=== PATIENT | female | born 1960 | race Hispanic/Latino ===

== ENCOUNTER → 2018-03-12 | Outpatient (CLI) | payer BC, OTHER ==
[~2018-03-12] MED LIST: LIDOCAINE 1%-EPI 1:100,000 20 ML VIAL IJ ONE; LIDOCAINE HCL MPF 1% 5ML VIAL ONE; SODIUM BICARB 50MEQ 50ML VIAL ONE
== END | disposition home or self-care (01) ==
LOC: RAH 07:48
PROVIDERS: ATTEND Family Medicine
DX: E04.1 Nontoxic single thyroid nodule (principal)
CPT/HCPCS: 60100; 88161; 88173; 88305; J3490 ×3

== ENCOUNTER 2018-03-18 03:53 | Inpatient (IN) | payer BC ==
[2018-03-18 05:01] LABS: BASOPHILS % (AUTO) 0.6 % (0.0-5.0); EOSINOPHILS % (AUTO) 2.4 % (0.0-8.0); HEMATOCRIT 40.3 % (36-48); LYMPHOCYTES % (AUTO) 39.6 % (21.0-51.0); MEAN CORPUSCULAR HEMOGLOBIN 29.2 pg (27.0-33.0); MEAN CORPUSCULAR HGB CONC 32.4 g/dL (32.0-36.0); MEAN CORPUSCULAR VOLUME 90.1 fL (79-99); MONOCYTES % (AUTO) 6.6 % (3.0-13.0); NEUTROPHILS % (AUTO) 50.8 % (40.0-77.0); NUCLEATED RED BLOOD CELLS 0.1 % (0.0-0.19); PLATELET COUNT (AUTO) 202 K/uL (130-400); RED BLOOD CELL COUNT(AUTO) 4.47 MIL/uL (4.00-5.50); RED CELL DISTRIBUTION WIDTH 13.6 % (11.0-15.5)
[2018-03-18 05:12] LABS: CREATININE 0.6 mg/dL (0.5-1.5); POTASSIUM 3.9 mmol/L (3.5-5.1)
[2018-03-18 05:13] LABS: INR 0.95 (0.85-1.15)
[2018-03-18 05:15] LABS: BILIRUBIN,URINE Negative (NEGATIVE); COLOR,URINE Yellow (YELLOW); GLUCOSE, URINE (UA) >=1000 mg/dL (NEGATIVE); KETONES,URINE Negative (NEGATIVE); LEUKOCYTE ESTERASE ,URINE Negative (NEGATIVE); NITRATE,URINE Negative (NEGATIVE); OCCULT BLOOD,URINE Negative (NEGATIVE); PROTEIN,URINE Negative (NEGATIVE); UROBILINOGEN,URINE 0.2 mg/dL (0.2-1.0)
[2018-03-18 05:17] LABS: APPEARANCE,URINE CLEAR (CLEAR)
[2018-03-18 05:17] LABS: ALBUMIN 3.6 g/dL (3.5-5.0); BILIRUBIN,TOTAL 0.3 mg/dL (0.2-1.0); TOTAL PROTEIN, SERUM 7.1 g/dL (6.0-8.3)
[2018-03-18 05:35] LABS: BACTERIA,URINE Rare /HPF (None Seen); RBC,URINE 0-1 /HPF (0-1); SQUAMOUS EPITHELIAL CELL,UR 0-2 /HPF (0-2); WBC,URINE 0-1 /HPF (0-1)
[2018-03-18] MEDS ORDERED: SODIUM CHLORIDE 0.9% 1000ML 1,000 ML IV SCH (06:31)
[2018-03-18] MEDS ORDERED: ONDANSETRON HCL 4 MG/2 ML VIAL IV PRN (06:45)
[2018-03-18] MEDS ORDERED: ACETAMINOPHEN 325 MG TAB PO PRN (06:45)
[2018-03-18 07:31] LABS: CHOLESTEROL 150 mg/dL (<200); HDL CHOLESTEROL 50 mg/dL (35-85); LDL DIRECT 86 mg/dL (0-99); TRIGLYCERIDES 86 mg/dL (30-200)
[2018-03-18] MEDS ORDERED: SODIUM CHLORIDE 0.9% 1000ML 1,000 ML IV ONE (07:49)
[2018-03-18] MEDS ORDERED: PANTOPRAZOLE 40 MG/VIAL IVP SCH (09:00)
[2018-03-18] MEDS ORDERED: ENOXAPARIN SODIUM 80 MG/0.8 ML SQ SCH (09:00)
[2018-03-18] MEDS ORDERED: ASPIRIN 81 MG EC TAB PO SCH (09:00)
[2018-03-18] MEDS ORDERED: ENOXAPARIN SODIUM 100 MG/1 ML SQ ONE (09:00)
[2018-03-18] MEDS ORDERED: ASPIRIN 81MG TAB.CHEW ONE (09:00)
[2018-03-18] MEDS ORDERED: INSULIN HUMULIN R 100 UNIT/ML 3ML SQ SCH (11:30)
[2018-03-18 11:48] LABS: HEMOGLOBIN A1C 9.9 % (4.0-6.0)
[2018-03-18] MEDS ORDERED: INSULIN HUMULIN R 100 UNIT/ML 3ML ONE (17:12)
== END 2018-03-18 21:53 | disposition home or self-care (01) | DRG 638 ==
LOC: EDH 03:53 → EDHIP 06:19 → 2DH 20:17 → EDHIP 20:24 → UNDODISIN 21:53
PROVIDERS: ADMIT Internal Medicine; ATTEND Internal Medicine
DX: E11.65 Type 2 diabetes mellitus with hyperglycemia (principal); G45.9 Transient cerebral ischemic attack, unspecified; I10 Essential (primary) hypertension; E03.9 Hypothyroidism, unspecified; E78.5 Hyperlipidemia, unspecified; Z88.0 Allergy status to penicillin; Z79.4 Long term (current) use of insulin
CPT/HCPCS: 36415; 70450; 70544; 70551; 71045; 80053; 80061; 81001; 82948; 83036; 84443; 84484; 85025; 85610; 85730; 92610; 93005; 93306; 93880; C9113; J1650; J1815; J7030

== ENCOUNTER → 2019-03-19 | Outpatient (CLI) | payer BC ==
[~2019-03-19] VITALS: Ht 157.5 cm; Wt 87.1 kg
[2019-03-19 10:20] LABS: INR 0.94 (0.85-1.15); PARTIAL THROMBOPLASTIN TIME 27.1 SEC (26.3-35.5); PROTHROMBIN TIME 9.9 SEC (9.6-11.6)
--- NOTE | 2019-03-19 10:25 | NUR ---
U/S GUIDED BX/FNA RIGHT THYROID NODULE PROCEDURE PERFORMED BY DR. KASPER. PUNCTURE SITE RIGHT SIDE OF NECK. PATIENT TOLERATED PROCEDURE WELL. SPECIMEN X 5 COLLECTED AND SENT TO LAB. END OF PROCEDURE AT 1035. BIOPSY NEEDLE REMOVED AN DRESSING APPLIED. NO BLEEDING NOTED. DISCHARGE INSTRUCTIONS GIVEN TO PATIENT. PATIENT VERBALIZED UNDERSTANDING. DISCHARGED AMBULATORY @ 1055. PT STABLE, AAO X 3, WITH NO C/O PAIN.
== END | disposition home or self-care (01) ==
LOC: RAH 09:14
PROVIDERS: ATTEND Otolaryngology
DX: E04.1 Nontoxic single thyroid nodule (principal); E11.9 Type 2 diabetes mellitus without complications; E66.01 Morbid (severe) obesity due to excess calories; Z68.35 Body mass index [BMI] 35.0-35.9, adult; Z79.899 Other long term (current) drug therapy; Z79.4 Long term (current) use of insulin; Z88.0 Allergy status to penicillin; Z98.890 Other specified postprocedural states
CPT/HCPCS: 36415; 60100; 76942; 85610; 85730; 88173; 88305; 88333; 88334

== ENCOUNTER 2023-07-14 07:45 | Emergency (ER) | payer BC ==
[~2023-07-14] VITALS: Ht 157.5 cm; Wt 85.7 kg
[2023-07-14 08:04] LABS: BASOPHILS # (AUTO) 0.03 K/uL (0.00-0.20); BASOPHILS % (AUTO) 0.5 % (0.0-5.0); EOSINOPHILS # (AUTO) 0.16 K/uL (0.00-0.70); EOSINOPHILS % (AUTO) 2.7 % (0.0-8.0); HEMATOCRIT 41.9 % (36-48); IMMATURE GRANULOCYTE ABSOLUTE 0.02 K/uL (0-1); LYMPHOCYTES # (AUTO) 1.8 K/uL (1.0-4.8); LYMPHOCYTES % (AUTO) 31.6 % (21.0-51.0); MEAN CORPUSCULAR HEMOGLOBIN 29.2 pg (27.0-33.0); MEAN CORPUSCULAR HGB CONC 32.5 g/dL (32.0-36.0); MEAN CORPUSCULAR VOLUME 89.9 fL (79-99); MONOCYTES # (AUTO) 0.4 K/uL (0.1-1.0); NEUTROPHILS # (AUTO) 3.4 K/uL (1.8-7.7); NEUTROPHILS % (AUTO) 57.9 % (40.0-77.0); PLATELET COUNT (AUTO) 245 K/uL (130-400); RED BLOOD CELL COUNT(AUTO) 4.66 MIL/uL (4.00-5.50); RED CELL DISTRIBUTION WIDTH 12.5 % (11.0-15.5); WHITE BLOOD COUNT (AUTO) 5.8 K/uL (4.8-10.8)
[2023-07-14] MEDS: ONDANSETRON 4MG INJ ONE (08:11)
[2023-07-14] MEDS: HYDROCODONE/ACETAMINOPHEN 5/325 MG TAB ONE (08:12)
[2023-07-14] MEDS: ONDANSETRON 4MG INJ IVP ONE (08:12)
[2023-07-14] MEDS: HYDROCODONE/ACETAMINOPHEN 5/325 MG TAB PO ONE (08:12)
[2023-07-14 08:20] LABS: ALBUMIN 3.5 g/dL (3.5-5.0); BILIRUBIN,TOTAL 0.3 mg/dL (0.2-1.0); CREATININE 0.6 mg/dL (0.5-1.5); POTASSIUM 3.9 mmol/L (3.5-5.1); TOTAL PROTEIN, SERUM 7.4 g/dL (6.0-8.3)
[2023-07-14] MEDS: LIDOCAINE HCL 1% 20 ML VIAL ONE (09:02)
[2023-07-14 09:07] VITALS: BP 144/67; PULSE 80; RESP 18; O2SAT 98
[2023-07-14] MEDS ORDERED: SULF1TAB42 PO (09:12)
[2023-07-14] MEDS ORDERED: IBUP-2070 PO (09:12)
== END 2023-07-14 09:37 | disposition home or self-care (01) ==
LOC: EDH 07:45
DX: L02.11 Cutaneous abscess of neck (principal); E11.9 Type 2 diabetes mellitus without complications; Z79.899 Other long term (current) drug therapy; Z98.890 Other specified postprocedural states
CPT/HCPCS: 99284; 96374; 10060; 80053; 85025; 87040 ×2; 87076; 83605; 36415; 87070; J2405

== ENCOUNTER 2023-11-11 09:55 | Emergency (ER) | payer BC ==
[~2023-11-11] VITALS: Ht 157.5 cm; Wt 89.8 kg
[~2023-11-11 09:55] MED LIST changes: +IBUP-2070 PO; -LIDOCAINE 1%-EPI 1:100,000 20 ML VIAL IJ ONE; -LIDOCAINE HCL MPF 1% 5ML VIAL ONE; -SODIUM BICARB 50MEQ 50ML VIAL ONE; +SULF1TAB42 PO
[2023-11-11 10:34] LABS: BASOPHILS # (AUTO) 0.05 K/uL (0.00-0.20); BASOPHILS % (AUTO) 0.7 % (0.0-5.0); EOSINOPHILS # (AUTO) 0.18 K/uL (0.00-0.70); EOSINOPHILS % (AUTO) 2.5 % (0.0-8.0); HEMATOCRIT 44.2 % (36-48); IMMATURE GRANULOCYTE ABSOLUTE 0.01 K/uL (0-1); LYMPHOCYTES # (AUTO) 2.6 K/uL (1.0-4.8); LYMPHOCYTES % (AUTO) 34.9 % (21.0-51.0); MEAN CORPUSCULAR HEMOGLOBIN 29.4 pg (27.0-33.0); MEAN CORPUSCULAR HGB CONC 33.3 g/dL (32.0-36.0); MEAN CORPUSCULAR VOLUME 88.4 fL (79-99); MONOCYTES # (AUTO) 0.5 K/uL (0.1-1.0); MONOCYTES % (AUTO) 7.4 % (3.0-13.0); NEUTROPHILS % (AUTO) 54.4 % (40.0-77.0); PLATELET COUNT (AUTO) 240 K/uL (130-400); RED CELL DISTRIBUTION WIDTH 12.1 % (11.0-15.5); WHITE BLOOD COUNT (AUTO) 7.3 K/uL (4.8-10.8)
[2023-11-11 10:36] LABS: APPEARANCE,URINE CLOUDY (CLEAR); BILIRUBIN,URINE NEGATIVE (NEGATIVE); COLOR,URINE YELLOW (YELLOW); GLUCOSE, URINE (UA) 500 mg/dL (NEGATIVE); KETONES,URINE NEGATIVE (NEGATIVE); LEUKOCYTE ESTERASE ,URINE 500 Leu/uL (NEGATIVE); NITRATE,URINE NEGATIVE (NEGATIVE); OCCULT BLOOD,URINE NEGATIVE (NEGATIVE); PH,URINE 5.5 (5.0-8.0); PROTEIN,URINE 30 mg/dL (NEGATIVE)
[2023-11-11 10:37] LABS: ADD UA MICROSCOPIC YES
[2023-11-11 10:42] LABS: BACTERIA,URINE FEW /HPF (None Seen); MUCUS,URINE MANY LPF (None Seen); SQUAMOUS EPITHELIAL CELL,UR MANY /HPF (0-2); WBC,URINE 51-100 /HPF (0-1)
[2023-11-11 10:52] LABS: ALBUMIN 3.7 g/dL (3.5-5.0); BILIRUBIN,TOTAL 0.6 mg/dL (0.2-1.0); CREATININE 0.6 mg/dL (0.5-1.0); POTASSIUM 3.6 mmol/L (3.5-5.1); TOTAL PROTEIN, SERUM 7.7 g/dL (6.0-8.3)
[2023-11-11] MEDS: 0.9%NACL 1000ML 1,000 ML IV STA (11:04)
[2023-11-11] MEDS: KETOROLAC 15MG/ML VIAL (15MG/ML) IV STA (11:05)
[2023-11-11] MEDS: ONDANSETRON 4MG INJ IVP STA (11:24)
[2023-11-11 13:20] VITALS: BP 134/53; PULSE 56; RESP 17; O2SAT 99
[2023-11-11] MEDS ORDERED: SULF1TAB42 PO (13:44)
[2023-11-12] MEDS ORDERED: IBUP-2077 PO (16:34)
[2023-11-12] MEDS ORDERED: CYCL-309 PO (16:34)
== END 2023-11-11 13:58 | disposition home or self-care (01) ==
LOC: EDH 09:55
DX: N39.0 Urinary tract infection, site not specified (principal); E11.9 Type 2 diabetes mellitus without complications; Z88.0 Allergy status to penicillin
CPT/HCPCS: 99284; 74176; 96374; 96361; 96375; 80053; 83690; 85025; 87088; 81001; 36415; J7030; J2405; J1885